=== PATIENT | male | born 1965 | race Hispanic/Latino ===

== ENCOUNTER 2016-12-12 08:41 | Emergency (ER) | payer BC ==
[~2016-12-12] VITALS: Ht 170.2 cm; Wt 100.0 kg
[~2016-12-12 08:41] MED LIST: AMOX/K CLAV500 MG PO; AMOXIL500 MG OR; BENADRY2 EX; BENADRYL 50MG C50 MG OR; BIAXIN XL500 MG OR; FLEXERIL5 MG PO; FLONASE0.05 %; GLIPIZIDE5 MG PO; MEDDOSEPAK PO; METFORMIN500 MG PO; NAPROSYN375 MG PO; NO HOME MEDS; NO MEDS; PERCOCET 5/325M1 TAB OR; PRILOSEC OTC20 MG PO; ROBITUSSIN AC10 ML OR; TESSALON200 MG OR; [UNRECOGNIZED DRUG - OTHER]
[2016-12-12] MEDS ORDERED: PENICILLN VK500 MG PO (09:11)
[2016-12-12 09:26] VITALS: BP 132/76
== END 2016-12-12 09:27 | disposition home or self-care (01) | DRG 153 ==
LOC: ED 08:41
DX: J02.9 Acute pharyngitis, unspecified (principal); I10 Essential (primary) hypertension; E11.9 Type 2 diabetes mellitus without complications

== ENCOUNTER 2018-01-14 15:06 | Emergency (ER) | payer BC ==
[~2018-01-14] VITALS: Ht 170.2 cm; Wt 100.0 kg
[~2018-01-14 15:06] MED LIST changes: +PENICILLN VK500 MG PO
[2018-01-14] MEDS ORDERED: TORADOL PO (15:21)
[2018-01-14] MEDS ORDERED: AMOXICILLIN500 MG PO (15:21)
[2018-01-14 15:30] VITALS: BP 139/86
== END 2018-01-14 15:30 | disposition home or self-care (01) | DRG 153 ==
LOC: ED 15:06
DX: J02.9 Acute pharyngitis, unspecified (principal); R50.9 Fever, unspecified

== ENCOUNTER 2020-09-11 19:26 | Emergency (ER) | payer OTHER ==
[~2020-09-11] VITALS: Ht 170.2 cm; Wt 100.0 kg
[~2020-09-11 19:26] MED LIST changes: +AMOXICILLIN500 MG PO; +TORADOL PO
[2020-09-11] MEDS ORDERED: KEFLEX500 MG PO (19:47)
[2020-09-11 20:15] VITALS: BP 128/86
== END 2020-09-11 20:18 | disposition home or self-care (01) | DRG 914 ==
LOC: ED 19:26
DX: S61.022A Laceration with foreign body of left thumb without damage to nail, initial encounter (principal); E11.9 Type 2 diabetes mellitus without complications; E78.00 Pure hypercholesterolemia, unspecified; W26.0XXA Contact with knife, initial encounter; Z79.84 Long term (current) use of oral hypoglycemic drugs

== ENCOUNTER 2022-11-29 12:27 | Emergency (ER) | payer OTHER ==
[~2022-11-29] VITALS: Ht 170.2 cm; Wt 105.6 kg
[~2022-11-29 12:27] MED LIST changes: +KEFLEX500 MG PO
[2022-11-29] MEDS ORDERED: ZYRTEC10 MG PO (13:24)
[2022-11-29] MEDS ORDERED: MEDDOSEPAK PO (13:24)
[2022-11-29] MEDS ORDERED: AMOXICILLIN875 MG PO (13:24)
[2022-11-29 13:28] VITALS: BP 132/86
== END 2022-11-29 13:35 | disposition home or self-care (01) | DRG 179 ==
LOC: ED 12:27
DX: U07.1 COVID-19 (principal); J02.9 Acute pharyngitis, unspecified; R05.9 Cough, unspecified; Z79.84 Long term (current) use of oral hypoglycemic drugs; E11.9 Type 2 diabetes mellitus without complications; E78.00 Pure hypercholesterolemia, unspecified; H92.02 Otalgia, left ear

== ENCOUNTER 2024-02-20 19:54 | Emergency (ER) | payer OTHER ==
[~2024-02-20] VITALS: Ht 170.2 cm; Wt 104.0 kg
[~2024-02-20 19:54] MED LIST changes: +AMOXICILLIN875 MG PO; +METHOCARBAMOL500 MG PO; +PERCOCET 5/325M1 TAB PO; +TAM75CAP PO; +ZYRTEC10 MG PO
[2024-02-20] MEDS ORDERED: VOLTAREN - GENE75 MG PO (20:49)
[2024-02-20] MEDS ORDERED: ORALONE0.1 % MT (20:49)
[2024-02-20 21:05] VITALS: BP 127/80
== END 2024-02-20 21:05 | disposition home or self-care (01) | DRG 159 ==
LOC: ED 19:54
DX: M26.622 Arthralgia of left temporomandibular joint (principal); K12.0 Recurrent oral aphthae; E11.9 Type 2 diabetes mellitus without complications; E78.5 Hyperlipidemia, unspecified; I25.10 Atherosclerotic heart disease of native coronary artery without angina pectoris